=== PATIENT | female | born 2005 | race African-American/Black ===

== ENCOUNTER 2023-03-23 18:17 | Emergency (ER) | payer SELFPAY ==
[2023-03-23] MEDS ORDERED: Acetaminophen 500 MG TAB ONE (18:58)
[2023-03-23] MEDS ORDERED: Ibuprofen 200 MG TAB ONE (18:58)
[2023-03-23] MEDS ORDERED: Ondansetron ODT 4 MG TAB ONE (18:59)
[2023-03-23 19:32] LABS: SARS-CoV-2 NAA Rapid Test Not Detected (NotDetected)
[2023-03-23] MEDS ORDERED: Dexamethasone 10 MG/ML VIAL ONE (19:52)
== END 2023-03-23 19:58 | disposition home or self-care (01) ==
LOC: CSHERS 18:17
DX: J02.9 Acute pharyngitis, unspecified (principal)
CPT/HCPCS: 87081; 87430; 99283; J1100; Q0162